=== PATIENT | female | born 1955 | race Caucasian/White ===

== ENCOUNTER → 2019-06-18 | Outpatient (CLI) | payer BC, OTHER ==
[~2019-06-18] MED LIST: FUROSEMIDE 40 M40 MG PO; LOPRESSOR50 MG PO; NORVASC5 M1 PO; PANTOPRAZOLE SO40 M1 PO; POTASSIUM20 PO; PREDNISONE 10 M10 M1 PO; SERTRALINE HCL100 MG PO; TAMBOCOR 100 M100 M1 PO; XARELTO20 MG PO
[2019-06-18 18:09] LABS: HEMOGLOBIN 13.9 gm/dL (12.0-15.0); MCH 30.7 pg (26.0-34.0); MCHC 33.1 g/dL (28.0-37.0); MCV 92.8 fL (80.0-100.0); RBC 4.53 mil/uL (4.20-5.00); RDW 14.1 % (10.5-14.5); WBC 6.4 thou/uL (4.0-11.0)
[2019-06-18 18:20] LABS: CALCIUM 10.1 mg/dL (8.5-10.1); CREATININE 1.1 mg/dL (0.6-1.0); POTASSIUM 3.3 mmol/L (3.5-5.1); TOTAL BILIRUBIN 0.9 mg/dL (<0.1-1.0); TOTAL PROTEIN 7.8 g/dL (6.4-8.2)
== END ==
LOC: CAT 12:48
PROVIDERS: Internal Medicine Cardiovascular Disease
DX: Z01.818 Encounter for other preprocedural examination (principal); I25.10 Atherosclerotic heart disease of native coronary artery without angina pectoris; I48.91 Unspecified atrial fibrillation; M47.814 Spondylosis without myelopathy or radiculopathy, thoracic region; K80.80 Other cholelithiasis without obstruction

== ENCOUNTER 2019-06-20 06:20 | Observation (INO) | payer BC, OTHER ==
[~2019-06-20] VITALS: Ht 170.2 cm; Wt 107.5 kg
[2019-06-20 07:12] VITALS: BP 131/79
[2019-06-20] MEDS ORDERED: NORVASC5 M1 PO (07:39)
[2019-06-20] MEDS ORDERED: FUROSEMIDE 40 M40 MG PO (07:39)
[2019-06-20] MEDS ORDERED: LOPRESSOR50 MG PO (07:40)
[2019-06-20 07:41] LABS: PROTIME 10.3 Seconds (9.3-11.4)
[2019-06-20] MEDS ORDERED: XARELTO20 MG PO (07:41)
[2019-06-20] MEDS ORDERED: POTASSIUM20 PO (07:41)
[2019-06-20] MEDS ORDERED: SERTRALINE HCL100 MG PO (07:42)
[2019-06-20 14:40] VITALS: BP 159/92
[2019-06-20 15:15] VITALS: BP 142/79
--- NOTE | 2019-06-20 18:16 | NUR ---
ADMITTED PATIENT FROM [facility]ATION[facility] AT 1400, DROWSY AND ORIENTED. NO COMPLAINTS OF PAIN. SR ON MONITOR. NO CHEST PAIN. R GROIN WITH 3 VENOUS PUNCTURES, SUTCHERS, NO HEMATOMA, DRESSING INTACT. NORMAL PULSES TO BLE, R RADIAL LEANNE SITE WITH PRESSURE DRESSING APPLIED. BEDREST UNTIL 7PM. FAMILY AT BEDSIDE. NO COMPLAINTS OR CONCERNS VOICED.
[2019-06-20 20:21] VITALS: BP 116/65
[2019-06-20 22:07] VITALS: BP 116/65
[2019-06-21] VITALS: BP 110/67
[2019-06-21 04:16] VITALS: BP 110/67
--- NOTE | 2019-06-21 04:26 | NUR ---
ASSESSMENT DOCUMENTED.PT BEEN RESTING IN NO ACUTE DISTRESS.A/OX4.S/P AFIB ABLATION VIA RIGHT GROIN.DRESSING INTACT,NO NOTED ACTIVE BLEEDING OR HEMATOMA.DENIES PAIN OR ANY DISTRESS.PT HOPING TO DISCHARGE TO HOME TODAY.
[2019-06-21 08:00] VITALS: BP 124/69
[2019-06-21] MEDS ORDERED: TAMBOCOR 100 M100 M1 PO (08:11)
[2019-06-21 09:58] VITALS: BP 124/69
--- NOTE | 2019-06-21 11:22 | NUR ---
ASSUMED CARE @ 0700 06/21/19, PT ASSESSMENTS AND VSS COMPLETED BY CCU PROTOCOL. PT DISCHARGED TODAY PER DR RENDON'S ORDERS, PT TRANSPORTED TO THE MAIN ENTRANCE WITH THE ASSIST OF THE RN, NO COMPLICATIONS NOTED.
--- NOTE | 2019-07-02 14:02 | P ---
[facility] [address] [address] PROCEDURE REPORT Name: MAGDA TROTTER Room #: 209-P DIANE Cardoso#: [id number] Admission: 06/20/19 Attend Phys: Ivan Romero MD Discharge: 06/21/19 Date of : 53 Report #: [id number] THIS REPORT FOR: //name// CC: ANDREW physician/PCP ARTURO Mclean PROCEDURE: Atrial fibrillation ablation. PREOPERATIVE DIAGNOSIS: Atrial fibrillation/atrial flutter. POSTOPERATIVE DIAGNOSIS: Atrial flutter. HISTORY: The patient is a 63-year-old with history of AFib, who has failed antiarrhythmic drugs and is here for an ablation. DICTATION ENDS HERE <ELECTRONICALLY SIGNED> By: Ivan Romero MD 07/02/19 1402 0819 0833 Ivan Romero MD /nt
== END 2019-06-21 11:20 | disposition home or self-care (01) ==
LOC: CATH → 2N 14:31 → CATH 14:40 → 2N 06-21 11:20
PROVIDERS: ADMIT Internal Medicine Cardiovascular Disease
DX: I48.0 Paroxysmal atrial fibrillation (principal); I10 Essential (primary) hypertension; Z79.899 Other long term (current) drug therapy; Z23 Encounter for immunization
CPT/HCPCS: 62110; 62900; 65020; 65040; 70005

== ENCOUNTER 2019-06-22 11:17 | Inpatient (IN) | payer BC, OTHER ==
[~2019-06-22] VITALS: Ht 170.2 cm; Wt 112.0 kg
[~2019-06-22 11:17] MED LIST changes: -PANTOPRAZOLE SO40 M1 PO; -PREDNISONE 10 M10 M1 PO
--- NOTE | 2019-06-22 13:26 | 2DMMODE ---
[facility] [place] [address] 2 D/M-MODE ECHOCARDIOGRAM Name: MAGDA TROTTER Room #: REG [facility]#: [id number] Admission: 06/22/19 Attend Phys: Ivan Romero Discharge: Date of : 53 Report #: [id number] THIS REPORT FOR: //name// APPROVED REPORT Study performed: 06/22/2019 11:45:23 EXAM: Comprehensive 2D, Doppler, and color-flow Echocardiogram Patient Location: Out-Patient Room #: Echo lab 2 Status: routine BSA: 2.16 HR: 96 bpm BP: 132/84 mmHg Rhythm: Atrial Fibrillation Other Information Study Quality: Adequate Indications Atrial Fibrillation Chest Pain S^P ablation. 2D Dimensions RVDd: 42.18 mm IVC: 27.00 mm Volumes Left Atrial Volume (Systole) Single Plane 4CH: 100.54 mL Single Plane 2CH: 83.55 mL LA ESV Index: 47.00 mL/m2 Tricuspid Valve TR Peak Ari.: 3.11 m/s TR Peak Gr.: 38.71 mmHg PA Pressure: 54.00 mmHg Left Ventricle The left ventricle is normal size. There is normal left ventricular wall thickness. The left ventricular systolic function is normal. The left ventricular ejection fraction is within the normal range. LVEF is 50-55%. Right Ventricle [facility] [address] [place] [address] 2 D/M-MODE ECHOCARDIOGRAM Name: MAGDA TROTTER Room #: REG [facility]ATHER Mercado.#: [id number] Admission: 06/22/19 Attend Phys: Ivan Romero Discharge: Date of : 53 Report #: [id number] Right ventricle is at the upper limits of normal. Atria Left atrium is dilated. Right atrium is dilated. Aortic Valve The aortic valve is normal in structure. Mitral Valve The mitral valve is normal in structure. Mild mitral regurgitation. Tricuspid Valve The tricuspid valve is normal in structure. There is mild tricuspid regurgitation. Estimated PAP 54 mmHg. There is moderate pulmonary hypertension. Great Vessels The aortic root is normal in size. The inferior vena cava is dilated with no inspiratory collapse. Pericardium Small circumferential pericardial effusion. <Conclusion> The left ventricle is normal size. LVEF is 50-55%. Left atrium is dilated. Right atrium is dilated. The mitral valve is normal in structure. Mild mitral regurgitation. The tricuspid valve is normal in structure. There is mild tricuspid regurgitation. Estimated PAP 54 mmHg. There is moderate pulmonary hypertension. Small circumferential pericardial effusion. <ELECTRONICALLY SIGNED> By: Dakotah Lopez MD 06/22/19 1326 1326 1326 Dakotah Lopez MD /INF
[2019-06-22 14:37] LABS: ABSOLUTE NEUTROPHILS 8.9 thou/uL (1.4-8.2); BASOPHILS 0.3 % (0.0-2.0); EOSINOPHILS 0.3 % (0.0-3.0); HEMATOCRIT 37.7 % (37.0-47.0); HEMOGLOBIN 12.2 gm/dL (12.0-15.0); LYMPHOCYTES 7.7 % (24.0-44.0); MCH 30.2 pg (26.0-34.0); MCHC 32.4 g/dL (28.0-37.0); MCV 93.4 fL (80.0-100.0); MONOCYTES 11.1 % (1.0-8.0); PLATELET COUNT 150 thou/uL (150-400); POLYS 80.6 % (36.0-66.0); RBC 4.04 mil/uL (4.20-5.00); RDW 14.6 % (10.5-14.5)
[2019-06-22 14:54] LABS: ALBUMIN 3.7 g/dL (3.4-5.0); CREATININE 1.1 mg/dL (0.6-1.0); TOTAL BILIRUBIN 1.3 mg/dL (<0.1-1.0); TOTAL PROTEIN 7.7 g/dL (6.4-8.2)
--- NOTE | 2019-06-22 17:15 | NUR ---
PATIENT ARRIVED DIRECT ADMISSION FOR CHEST PAIN, SOA, AND WEAKNESS. PT HAD ABLATION ON 06/20/19. STATES SHE HAS PRESSURE ON CHEST THAT RADIATE TO SHOULDERS AND NECK. CHEST PN TREATED WITH MEDICATIONS, DEMINISHED LUNGS WITH PAIN WITH DEEP BREATH 2L NC, PT IS WEAK. PLACED ON FALL PRECAUTIONS.HOME MEDS RECONCILED, ADMISSION HISTORY AND ASSESMENT COMPLETED.
[2019-06-22 19:36] VITALS: BP 124/69
[2019-06-22 21:02] LABS: URINE BILIRUBIN NEGATIVE (Negative); URINE BLOOD 2+ (Negative); URINE CLARITY CLEAR; URINE COLOR YELLOW; URINE GLUCOSE-RANDOM* NEGATIVE (Negative); URINE KETONES NEGATIVE (Negative); URINE NITRITE-REFLEX NEGATIVE (Negative); URINE PROTEIN (DIPSTICK) NEGATIVE (Negative); URINE SPECIFIC GRAVITY <= 1.005 (1.005-1.035)
[2019-06-22 21:04] LABS: URINE LEUKOCYTES-REFLEX 1+ (Negative)
[2019-06-22 21:23] LABS: CASTS None Seen /LPF (None Seen); CRYSTALS None Seen /LPF (None Seen); MUCUS None Seen strn/LPF (None Seen); SQUAMOUS 0-3 Few /LPF (0-3); TRANSITIONAL EPITHEL CELL 0-3 Few /LPF (None Seen); URINE WBC-REFLEX 0-5 Rare /HPF (0-5)
[2019-06-22 21:24] LABS: BACTERIA-REFLEX None Seen /HPF (None Seen); URINE RBC 0-2 Rare /HPF (0-2)
[2019-06-23 00:14] VITALS: BP 121/69
[2019-06-23 04:32] VITALS: BP 128/76
--- NOTE | 2019-06-23 05:25 | NUR ---
ASSUMED PT CARE AT 1900. PT IS ALERT AND ORIENTED. FAMILY AT BEDSIDE. PT DENIES ANY CHEST PAIN COMPLAINT. FALL PRECAUTION IN PLACE. ASSESSMENT COMPLETED AND DOCUMENTED. NO SIGN OF DISTRESS NOTED IN PT. SCHEDULED MEDS ADMINISTERED TO PT. AFIB AND CONTROLLED NOTICED ON THE MONITOR. PT IS STABLE THROUGHOUT THE NIGHT. DENIES ANY FURTHER NEEDS AT THIS TIME.
[2019-06-23 07:53] LABS: ALBUMIN 3.1 g/dL (3.4-5.0); CALCIUM 9.1 mg/dL (8.5-10.1); POTASSIUM 3.4 mmol/L (3.5-5.1); TOTAL BILIRUBIN 1.4 mg/dL (<0.1-1.0); TOTAL PROTEIN 7.2 g/dL (6.4-8.2)
[2019-06-23 07:56] LABS: TROPONIN-I 0.63 ng/mL (<0.06)
[2019-06-23 08:00] VITALS: BP 137/91
[2019-06-23 10:24] LABS: BE(vivo) -0.8 mmol/L (-2 to +3); PCO2 35.3 mmHg (35.0-45.0); pH 7.432 (7.360-7.450); sO2 96.2 % (92.0-98.0)
--- NOTE | 2019-06-23 11:06 | EKG ---
[address] [address] ELECTROCARDIOGRAM REPORT Name: MAGDA TROTTER Room #: 213-P ADM IN M.R.#: [id number] Admission: 06/22/19 Attend Phys: Ivan Romero MD Discharge: Date of : 53 Report #: [id number] THIS REPORT FOR: //name// [facility] Test Date: 2019-06-23 Test Time: 07:43:11 Pat Name: MAGDA TROTTER Department: Room: 213 P Gender: F Gas Well Drilling Manager: XIOMARA : 1955 Requested By: Ranjeet Presley Order Number: [id number] MD: Kwadwo Camp Measurements Intervals [place] Rate: 91 P: [place]: QRS: 20 QRSD: 113 T: 22 QT: 404 QTc: 498 Interpretive Statements Atrial fibrillation Borderline intraventricular conduction delay Borderline prolonged QT interval No previous ECG available for comparison Electronically Signed On 06-23-2019 11:06:13 TRUCK SALES REPRESENTATIVE by Kwadwo Camp [email or web address] <ELECTRONICALLY SIGNED> By: Kwadwo Camp MD 06/23/19 1106 0743 0743 Kwadwo Camp MD /LENY
[2019-06-23 11:56] VITALS: BP 139/91
[2019-06-23 16:00] VITALS: BP 129/79
--- NOTE | 2019-06-23 16:36 | NUR ---
RECEIVED PT'S CARE AROUND 07; PT. ON BES RESTING WITH EYES CLOSED; CHEST RISING; DURING ASSESSMENT C/O PRESSURE OVER CHEST; 09/24; ST. FEELING LESS UNCORFOMTABLE THAN YESTERDAY; ST. "MUCH BETTER"; ST. ABLE TO TAKE DEEP BREATH; AM MEDICATION GIVEN; EDUCATED ABOUT FALL PREVENTION; PER PT. REPORT PT. ABLE TO AMBULATE WITHOUT SOB OR HEADACHE; PT. REQUESTED TO TAKE A SHOWER; PHYSICIAN NOTIFIED; PER CARDIOLOGY OK TO TAKE SHOWER; ST. NO DIZZINESS WHILE TAKING SHOWER; MONITORING; ASSESSMENT CHARGED; FOLLOWING POC; WILL PASS ON REPORT;
[2019-06-23 20:37] VITALS: BP 117/66
[2019-06-24 04:31] LABS: HEMATOCRIT 36.2 % (37.0-47.0); HEMOGLOBIN 11.7 gm/dL (12.0-15.0); MCH 30.4 pg (26.0-34.0); MCHC 32.4 g/dL (28.0-37.0); MCV 93.9 fL (80.0-100.0); RBC 3.85 mil/uL (4.20-5.00); RDW 14.6 % (10.5-14.5); WBC 9.8 thou/uL (4.0-11.0)
[2019-06-24 04:33] LABS: CALCIUM 8.7 mg/dL (8.5-10.1); MAGNESIUM 2.1 mg/dL (1.8-2.4); POTASSIUM 3.3 mmol/L (3.5-5.1)
--- NOTE | 2019-06-24 05:56 | NUR ---
PT ALERT AND ORIENTED. DENIES CHEST PAIN. AFIB ON THE MONITOR. HR 80 -105. NO PULPITATION REPORTED. NO NAUSEA OR VOMITING. WILL CONTINUE WITH POC. PT CURRENTLY STABLE.
[2019-06-24 06:08] VITALS: BP 152/93
[2019-06-24 08:00] VITALS: BP 144/101
[2019-06-24 16:00] VITALS: BP 156/97
--- NOTE | 2019-06-24 16:08 | NUR ---
ASSUMMED PT CARE AT APPROXIMATELY 0700. PT A&O X4. ASSESSMENT CHARTED. FALL PRECAUTIONS IN PLACE. PT DENIES HAVING CHEST PAIN. PT STATES SHE DOES BECOME SOB ON EXERSION. PT O2 SAT STABLE. PT AMBULATES STEADY/INDEPENDENTLY. PT DENIES HAVING ACUTE PAIN. PT'S CARDIOVERSION CONSENT SIGNED. PT AND FAMILY EDUCATED ABOUT POC. PT AND FAMILY STATED UNDERSTANDING AND DENIED HAVING FURTHER QUESTIONS. INFORMED DR OF LOW K+. DR STATED TO CONTINUE TO MONITOR AND ADDED NEW ORDERS, NEW ORDERS IMPLEMENTED. PT COMFORTABLE IN BED. PT DENIES HAVING FURTHER CONCERNS AT THIS TIME. VITAL SIGNS STABLE.
[2019-06-24 19:50] VITALS: BP 149/94
[2019-06-25] VITALS (13 sets, daily range): BP systolic 94–157; BP diastolic 52–107
--- NOTE | 2019-06-25 04:11 | NUR ---
PT REMAINED IN AFIB THROUGH THE NIGHT. CARDIOVERSION TO BE DONE THIS MORNING. PT WAS NPO SINCE MIDNIGHT. ALERT AND ORIENTED . VITALS STABLE. WILL CONTINUE TO MONITOR.
[2019-06-25 04:40] LABS: ABSOLUTE NEUTROPHILS 6.3 thou/uL (1.4-8.2); BASOPHILS 0.2 % (0.0-2.0); EOSINOPHILS 0.4 % (0.0-3.0); HEMATOCRIT 35.5 % (37.0-47.0); LYMPHOCYTES 18.3 % (24.0-44.0); MCH 31.3 pg (26.0-34.0); MCHC 33.7 g/dL (28.0-37.0); MCV 92.9 fL (80.0-100.0); MONOCYTES 9.4 % (1.0-8.0); PLATELET COUNT 170 thou/uL (150-400); POLYS 71.7 % (36.0-66.0); RBC 3.82 mil/uL (4.20-5.00); RDW 14.5 % (10.5-14.5); WBC 8.8 thou/uL (4.0-11.0)
[2019-06-25 04:55] LABS: CALCIUM 9.1 mg/dL (8.5-10.1); CREATININE 0.9 mg/dL (0.6-1.0); POTASSIUM 3.1 mmol/L (3.5-5.1); TOTAL BILIRUBIN 0.9 mg/dL (<0.1-1.0)
--- NOTE | 2019-06-25 11:33 | NUR ---
1120-PT RESPONDS TO VERBAL STIMULI AND ANSWERS QUESTIONS APPROPRIATELY.
[2019-06-25] MEDS ORDERED: PANTOPRAZOLE SO40 M1 PO (16:28)
--- NOTE | 2019-06-25 16:39 | NUR ---
ASSUMMED PT CARE AT APPROXIMATELY 0700. PT A&O X4. ASSESSMENT CHARTED. FALL PRECAUTIONS IN PLACE. PT DENIES HAVING CHEST PAIN. PT DENIES HAVING SOB. PT DENIES HAVING ACUTE PAIN. PT HAD A SUCCESSFUL CARDIOVERSION- PT CARDIOVERTED TO SINUS RHYTHM. PT K+ LOW. INFORMED CORE MAKER. CORE MAKER ORDERED K+. NEW ORDER OF K+ IMPLEMENTED. PT VITAL SIGNS STABLE. PT DISCHARGING HOME C SELF CARE. PT RECEIVED DISCHARGE EDUCATION. PT STATED UNDERSTANDING AND DENIED HAVING FURTHER QUESTIONS. IV DC. TELE DC. HOSPITAL TRANSPORT WILL BE TRANSPORTING PT OFF THE UNIT. AWAITING TRANSPORT TO ARRIVE.
[2019-06-25] MEDS ORDERED: PREDNISONE 10 M10 M1 PO (16:49)
--- NOTE | 2019-06-26 19:04 | EKG ---
[address] [address] ELECTROCARDIOGRAM REPORT Name: LISSETDANYELLEMAGDA Merchant Room #: 213-[facility] IN M.R.#: [id number] Admission: 06/22/19 Attend Phys: Ivan Romero MD Discharge: 06/25/19 Date of : 53 Report #: [id number] THIS REPORT FOR: //name// [facility] Test Date: 2019-06-25 Test Time: 07:33:23 Pat Name: MAGDA TROTTER Department: Room: [facility] Gender: F Filing And Polishing Supervisor: Toan LANDEROS : 1955 Requested By: Viv Estrada Order Number: [id number] MD: Chandrakant Vera Measurements Intervals [place] Rate: 99 P: [place]: QRS: 40 QRSD: 113 T: 44 QT: 414 QTc: 532 Interpretive Statements Atrial fibrillation Intraventricular conduction delay Nonspecific ST and T wave abnormality Prolonged QT interval Compared to ECG 06/23/2019 07:43:11 No significant changes Electronically Signed On 06-26-2019 19:04:09 [employer]ATED [employer] FORMS by Chandrakant Vera [email or web address] <ELECTRONICALLY SIGNED> By: Chandrakant Vera MD, [facility] 06/26/19 1904 0733 0733 Chandrakant Vera MD, [facility] /EPI
--- NOTE | 2019-06-26 19:10 | EKG ---
[address] [place] [address] ELECTROCARDIOGRAM REPORT Name: LISSETDANYELLEMAGDA Merchant Room #: 213-[facility] IN M.R.#: [id number] Admission: 06/22/19 Attend Phys: Ivan Romero MD Discharge: 06/25/19 Date of : 53 Report #: [id number] THIS REPORT FOR: //name// [facility] Test Date: 2019-06-25 Test Time: 13:30:56 Pat Name: MAGDA TROTTER Department: Room: [facility] Gender: F Estimator Paperboard Boxes: Toan LANDEROS : 1955 Requested By: Viv Estrada Order Number: [id number] MD: Chandrakant Vera Measurements Intervals [place] Rate: 63 P: 55 AR: 232 QRS: 13 QRSD: 108 T: 47 QT: 462 QTc: 474 Interpretive Statements Sinus rhythm Prolonged AR interval Nonspecific T abnrm Compared to ECG 06/23/2019 07:43:11 Atrial fibrillation no longer present Electronically Signed On 06-26-2019 19:09:30 MEDICAL RECORDS CUSTODIAN by Chandrakant Vera [email or web address] <ELECTRONICALLY SIGNED> By: Chandrakant Vera MD, [facility] 06/26/19 1909 1330 1330 Chandrakant Vera MD, [facility] /EPI
== END 2019-06-25 18:50 | disposition home or self-care (01) | DRG 309 ==
LOC: CV 11:17 → 2N 13:31
PROVIDERS: Nurse Practitioner; ADMIT Internal Medicine
PROC: 5A2204Z Restoration of Cardiac Rhythm, Single (ICD-10-PCS; principal; 2019-06-22)
DX: I48.0 Paroxysmal atrial fibrillation (principal); J98.11 Atelectasis; I31.9 Disease of pericardium, unspecified; I10 Essential (primary) hypertension; F41.1 Generalized anxiety disorder; E87.6 Hypokalemia; Z79.899 Other long term (current) drug therapy
CPT/HCPCS: 10081; 10797; 62110; 62900

== ENCOUNTER → 2019-10-02 | Outpatient (CLI) | payer BC, OTHER ==
[~2019-10-02] MED LIST changes: +PANTOPRAZOLE SO40 M1 PO; +PREDNISONE 10 M10 M1 PO
== END ==
LOC: SJCVC 14:45
DX: I44.0 Atrioventricular block, first degree (principal); I48.0 Paroxysmal atrial fibrillation; I10 Essential (primary) hypertension; Z79.899 Other long term (current) drug therapy

== ENCOUNTER → 2020-04-01 | Outpatient (CLI) | payer OTHER | LOC: SJCVC 13:06 | PROVIDERS: ATTEND Internal Medicine Cardiovascular Disease | DX: R94.31 Abnormal electrocardiogram [ECG] [EKG] (principal); I45.4 Nonspecific intraventricular block; I44.0 Atrioventricular block, first degree; I48.91 Unspecified atrial fibrillation; I48.3 Typical atrial flutter; I10 Essential (primary) hypertension; Z79.899 Other long term (current) drug therapy ==

== ENCOUNTER → 2020-10-16 | Outpatient (CLI) | payer OTHER | LOC: SJCVC 14:21 | PROVIDERS: ATTEND Internal Medicine Cardiovascular Disease | DX: I44.0 Atrioventricular block, first degree (principal); I48.0 Paroxysmal atrial fibrillation; I10 Essential (primary) hypertension; R60.0 Localized edema; I47.1 Supraventricular tachycardia; R00.2 Palpitations; Z95.818 Presence of other cardiac implants and grafts; Z79.899 Other long term (current) drug therapy; Z88.8 Allergy status to other drugs, medicaments and biological substances; Z72.89 Other problems related to lifestyle ==